=== PATIENT | female | born 1970 | race Caucasian/White ===

== ENCOUNTER → 2017-03-30 | Outpatient (CLI) | payer OTHER ==
--- NOTE | 2017-03-30 15:40 | XR ---
EXAMINATION TYPE: XR chest 2V DATE OF EXAM: 03/30/2017 COMPARISON: NONE HISTORY: Chest pain TECHNIQUE: Frontal and lateral views of the chest are obtained. FINDINGS: There is no focal air space opacity or pneumothorax seen. Blunting of the right costophre sebastian angle is present. The cardiac silhouette size is within normal limits. The osseous structures a re intact. IMPRESSION: Difficult to exclude a small effusion.
== END | disposition home or self-care (01) ==
LOC: RADXRMAIN 14:25
PROVIDERS: ATTEND Physician Assistant
DX: R07.89 Other chest pain (principal)
CPT/HCPCS: 71020

== ENCOUNTER → 2020-07-30 | Outpatient (CLI) | payer BC ==
--- NOTE | 2020-07-30 13:11 | MM ---
Reason for exam: screening (asymptomatic). Baseline mammogram. History: Family history of breast cancer in 2 paternal aunts at age 40. Taking hormonal contraceptives beginning at age 48. Physical Findings: Nurse did not find any significant physical abnormalities on exam. MG Screening Mammo w CAD Bilateral CC and MLO view(s) were taken. The breast tissue is heterogeneously dense. This may lower the sensitivity of mammography. There is no discrete abnormality. These results were verbally communicated with the patient and result sheet given to the patient on 07/30/20. ASSESSMENT: Negative, BI-RAD 1 RECOMMENDATION: Routine screening mammogram of both breasts in 1 year.
== END | disposition home or self-care (01) ==
LOC: RADMAMWWP 08:31
PROVIDERS: ATTEND Obstetrics & Gynecology
DX: Z12.31 Encounter for screening mammogram for malignant neoplasm of breast (principal); Z80.3 Family history of malignant neoplasm of breast
CPT/HCPCS: 77067

== ENCOUNTER → 2021-09-15 | Outpatient (CLI) | payer BC ==
--- NOTE | 2021-09-16 09:40 | MM ---
Reason for exam: screening (asymptomatic). Last mammogram was performed 1 year and 2 months ago. History: Family history of breast cancer in 2 paternal aunts at age 40. Taking hormonal contraceptives beginning at age 48. Physical Findings: A clinical breast exam by your physician is recommended on an annual basis and results should be correlated with mammographic findings. MG Screening Mammo w CAD Bilateral CC and MLO view(s) were taken. Prior study comparison: July 30, 2020, bilateral MG screening mammo w CAD. The breast tissue is heterogeneously dense. This may lower the sensitivity of mammography. No significant changes when compared with prior studies. ASSESSMENT: Negative, BI-RAD 1 RECOMMENDATION: Routine screening mammogram of both breasts in 1 year.
== END | disposition home or self-care (01) ==
LOC: RADMAMWWP 09:48
PROVIDERS: ATTEND Obstetrics & Gynecology
DX: Z12.31 Encounter for screening mammogram for malignant neoplasm of breast (principal); Z80.3 Family history of malignant neoplasm of breast
CPT/HCPCS: 77067

== ENCOUNTER → 2022-09-18 | Outpatient (CLI) | payer BC, MEDICAID ==
--- NOTE | 2022-09-19 09:26 | MM ---
Reason for Exam: Screening (asymptomatic). Last mammogram was performed 1 year(s) and 1 month(s) ago. Patient History: Menarche at age 14. First Full-Term at age 31. Currently using Hormonal Contraceptives, starting at age 48. Paternal aunt had breast cancer, age 40. Paternal aunt had breast cancer, age 40. Risk Values: Isidra 5 year model risk: 1.1%. NCI Lifetime model risk: 9.9%. Prior Study Comparison: 07/30/2020 Bilateral Screening Mammogram, [facility]. 09/15/2021 Bilateral Screening Mammogram, [facility]. Tissue Density: The breast tissue is heterogeneously dense. This may lower the sensitivity of mammography. Findings: Analyzed By CAD. There is no suspicious group of microcalcifications or new suspicious mass in either breast. Overall Assessment: Negative, BI-RAD 1 Management: Screening Mammogram of both breasts in 1 year. A clinical breast exam by your physician is recommended on an annual basis and results should be correlated with mammographic findings. Electronically signed and approved by: Rashid Beatty D.O.
== END | disposition home or self-care (01) ==
LOC: RADMAMWWP 16:21
PROVIDERS: ATTEND Obstetrics & Gynecology
DX: Z12.31 Encounter for screening mammogram for malignant neoplasm of breast (principal); Z80.3 Family history of malignant neoplasm of breast
CPT/HCPCS: 77063; 77067

== ENCOUNTER → 2023-10-31 | Outpatient (CLI) | payer BC ==
--- NOTE | 2023-10-31 13:37 | MM ---
Reason for Exam: Screening (asymptomatic). Last mammogram was performed 1 year(s) and 1 month(s) ago. Patient History: Menarche at age 14. First Full-Term at age 31. Postmenopausal. Hormonal Contraceptives, starting at age 48. Paternal aunt had breast cancer, age 40. Paternal aunt had breast cancer, age 40. Risk Values: Isidra 5 year model risk: 1.1%. NCI Lifetime model risk: 9.7%. Prior Study Comparison: 07/30/2020 Bilateral Screening Mammogram, [facility]. 09/15/2021 Bilateral Screening Mammogram, [facility]. 09/18/2022 Bilateral MG 3D screening mammo w/cad, [facility]. Tissue Density: The breasts are heterogeneously dense, which may obscure small masses. Findings: Analyzed By CAD. Right breast: There is no suspicious group of microcalcifications or new suspicious mass. Left breast: There is no suspicious group of microcalcifications or new suspicious mass. Overall Assessment: Negative, BI-RAD 1 Management: Screening Mammogram of both breasts in [address] [facility] will attempt to contact patient to return for supplemental views and ultrasound if indicated. Patient should continue monthly self-breast exams. A clinical breast exam by your physician is recommended on an annual basis. This exam should not preclude additional follow-up of suspicious palpable abnormalities. Note on Isidra scores and lifetime risk: 1. A Isidra score greater than 3% is considered moderate risk. If this is the case, consider specialist referral to assess eligibility for a risk reducing agent. 2. If overall lifetime risk for the development of breast cancer is 20% or higher, the patient may qualify for future screening with alternating mammogram and breast MRI. Electronically signed and approved by: Brian Lr DO
== END | disposition home or self-care (01) ==
LOC: RADMAMWWP 08:13
PROVIDERS: ATTEND Obstetrics & Gynecology
DX: Z12.31 Encounter for screening mammogram for malignant neoplasm of breast (principal); Z78.0 Asymptomatic menopausal state; Z80.3 Family history of malignant neoplasm of breast
CPT/HCPCS: 77063; 77067